=== PATIENT | male | born 1975 | race Caucasian/White ===

== ENCOUNTER 2018-01-24 22:12 | Emergency (ER) | payer OTHER ==
[2018-01-24] MEDS: predniSONE 20 MG TAB PO (22:45)
[2018-01-24] MEDS: IPRATROPIUM (NEB) 0.5 MG/2.5 ML AMP INH (22:54)
[2018-01-24] MEDS: ALBUTEROL 0.5% (NEB) 2.5 MG/0.5 ML AMP INH (22:55)
== END 2018-01-25 00:34 | disposition home or self-care (01) ==
LOC: E/R 01-25 00:34
DX: J45.901 Unspecified asthma with (acute) exacerbation (principal); I10 Essential (primary) hypertension
CPT/HCPCS: 71045; 94644; 99284-25

== ENCOUNTER 2018-03-14 08:55 | Emergency (ER) | payer OTHER ==
[2018-03-14] MEDS: predniSONE 20 MG TAB PO (09:33)
[2018-03-14] MEDS: IPRATROPIUM (NEB) 0.5 MG/2.5 ML AMP NEB (09:51)
[2018-03-14] MEDS: ALBUTEROL 0.083% (NEB) 2.5 MG/3 ML AMP NEB (09:51)
== END 2018-03-14 10:50 | disposition home or self-care (01) ==
LOC: FTE 08:55
DX: J45.901 Unspecified asthma with (acute) exacerbation (principal); I10 Essential (primary) hypertension; R06.02 Shortness of breath
CPT/HCPCS: 94664; 99283

== ENCOUNTER 2018-05-30 21:27 | Emergency (ER) | payer OTHER ==
[2018-05-31] MEDS: predniSONE 20 MG TAB PO (01:52)
[2018-05-31] MEDS: IPRATROPIUM (NEB) 0.5 MG/2.5 ML AMP NEB (02:02)
[2018-05-31] MEDS: ALBUTEROL 0.083% (NEB) 2.5 MG/3 ML AMP NEB (02:02)
== END 2018-05-31 03:28 | disposition home or self-care (01) ==
LOC: FTE 21:27
DX: J45.901 Unspecified asthma with (acute) exacerbation (principal); I10 Essential (primary) hypertension
CPT/HCPCS: 94644; 99283-25